=== PATIENT | male | born 1995 | race Caucasian/White ===

== ENCOUNTER 2019-08-11 05:33 | Day surgery (SDC) | payer SELFPAY ==
[2019-07-21 15:15] VITALS: BMI 23.7
--- NOTE | 2019-07-22 12:45 | HP_ITS ---
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 Patient has noted that he has had bulging for the last 6 months. Is especially painful with heavy lifting. He does not have any nausea or vomiting or fevers or chills. ROS General General: No weight change or fatigue Cardio Cardiovascular: No murmur, pacemaker, heart disease, atrial fibrillation, high blood pressure, heart attack, heart stent, palpitations, shortness of breat with exertion or chest pain Psych Psychiatric: No depression or anxiety Resp Respiratory: No shortness of breath, No sleep apnea, No cough, No COPD, No asthma, No emphysema, No wheezing Gastro Gastrointestinal: No abdominal pain, No nausea or vomiting, No diarrhea, No constipation, No blood in stool, No acid reflux, No hemorrhoids, No ulcers, No gallbladder problem, No black,tarry stools Lester Hematologic: No blood thinners Exam Const General: cooperative Orientation: alert, oriented x3 Resp Effort & Inspection: normal respiratory effort Auscultation: clear to auscultation bilaterally Cardio Rate: regular rate Rhythm: regular rhythm Heart Sounds: no murmurs GI Inspection: non-distended Palpation: soft, hernia indirect inguinal, nontender Assessment & Plan Problems 1. Right inguinal hernia K40.90 Plan The patient has a right inguinal hernia which is reducible. I discussed open and robotic assisted laparoscopic hernia repair with him. The patient was receptive to surgery. After discussing the options the patient prefers laparoscopic approach but he is checking with his insurance to see if they will pay for it or if he will have to have open repair. I discussed the risks of both procedures. I discussed the risks of bleeding, infection, chronic groin pain, spermatic cord injury, recurrence. Patient understands the risks and wants to proceed. Venkatesh Hernandes MD Pager: [facility] [address] [place] [address], [address] [place] [address] Office: Coding Level of Care Code Off vis,new,level 3 Diagnoses Right inguinal hernia K40.90 07/22/19 1245 <Electronically signed by Venkatesh redman MD> Date _ Venkatesh Hernandes MD I have re-examined the patient. There are no clinical changes since date of exam.
[2019-08-11] VITALS (8 sets, daily range): BP systolic 111–136; BP diastolic 61–81; PULSE 53–70; RESP 15–16; TEMP 36.2–36.9; O2SAT 98–100; BMI 23.4
[2019-08-11] MEDS: Lactated Ringers 1,000 ML 100 ML IV ×2 (06:22→06:39)
[2019-08-11] MEDS: Cefazolin 2 GM in 0.9% Normal Saline 100 ML IV (07:22)
[2019-08-11] MEDS: Bupivacaine Mpf 0.5% 30 ML VIAL (08:29)
--- NOTE | 2019-08-11 09:14 | PCM.OPRPT ---
Problem List (1) Right inguinal hernia Status: Acute Report of Operation Date of Procedure: 08/11/19 Pre-Operative Diagnosis: Right inguinal hernia Post-Operative Diagnosis: Right inguinal hernia Surgery/Procedure Performed:: Robotic assisted laparoscopic right inguinal hernia repair with mesh Description of Procedure: The patient was brought back to the operating room and general anesthesia was induced. The abdomen was prepped and draped in the usual sterile fashion. A midline incision was made superior to the umbilicus and the Veress needle was placed through this and a drop test was performed. The abdomen was then insufflated to 15 mmHg. The Veress needle was removed and the camera port was placed into this incision. The abdomen was inspected and was normal. Patient appeared to have a direct and indirect hernia in the right inguinal region. Next under direct visualization an 8 mm port was placed in the right lateral sidewall and left lateral sidewall. The robot was undocked and the patient was placed in steep Trendelenburg position. Using scissors and electrocautery the peritoneum was incised on the right side and the dissection was bluntly carried inferiorly until the hernia sac was encountered and reduced. The patient did have a direct and indirect component. Next a piece of pro-laborer chemical processing mesh was placed into the right inguinal region and unfolded. This adequately covered both hernia defects. The peritoneum was reapproximated with a running 3-0 V lock suture. This completely covered the mesh. There was one small defect in the peritoneum which was closed with a [id number] 4-0 Vicryl suture. Next the robot was undocked and the abdomen was allowed to desufflate. The incisions were anesthetized and closed with interrupted 4-0 Monocryl sutures as well as Steri-Strips and bandages. Patient tolerated procedure well. Testicles were checked at the end the case and were present in the scrotum. Grafts/Implants Used: Pro-laborer chemical processing mesh - Admit VTE Documentation VTE Mechan Device Prophylaxis: SCD's
--- NOTE | 2019-08-11 09:18 | PCM.DC.HER ---
Discharge Diet: Light diet - advance as tolerated Discharge Activity: Return to Normal Activity, May Not Drive - for 2-3 days or while taking narcotic pain meds., May Shower - with the bandage in place 1-2 days after surgery. Lifting Restrictions: 20 pounds for 2-4 weeks. Additional Activity Instructions:: Climbing stairs is fine, walking is encouraged. Sitting in bed may be uncomfortable. Sitting up using your lateral muscles (sitting up sideways) is usually more comfortable. Do not drive, work heavy equipment of sign legal documents for 24 hours. If your hernia repair was an ingunial repair, you may have scrotal swelling, an ice pack and/or athletic support can provide more comfort. Pain medications may cause nausea, you should typically eat light foods as you take your pain medications. Pain medications may also cause constipation. If you have difficulty with this, discuss with your doctor. Call your doctor if your incision/area has: Continuous Slow Oozing, Sudden Increased Bleeding, Increased Pain/ Swelling, Increased Redness, Foul Smelling Discharge Call your doctor if you observe: Fever of 101 or Higher Suture Line Care: Avoid Pulling/Pushing, Avoid Pinching/Bending Change Dressing in (Days):: 3 - Leave steri-strips for 1 week. May protect with a guaze bandaid. Cleanse incision/area with: Keep Dressing Clean & Dry Allergies/Adverse Reactions: Allergies No Known Allergies Allergy (Unverified 08/11/19 06:08) Medications to take at Discharge Oxycodone HCl/Acetaminophen [Percocet 5/325] 1 - 2 tablet PO Q4H PRN PRN 3 Days #15 tablet 08/11/19 The following prescriptions were given: Oxycodone HCl/Acetaminophen [Percocet 5/325] 1 - 2 tablet PO Q4H PRN PRN 3 Days #15 tablet PRN Reason: Pain Transmission Status: Sent to [facility] Primary Care Physician: Gonzalez Canales DO [Primary Care Provider] - Test Results: Test results from this visit will be discussed in further detail at your follow-up appointment, if applicable. Please Follow Up With: Venkatesh Hernandes MD When: Please call to schedule 2 week follow up appointment. [phone]
[2019-08-11] MEDS: oxyCODONE 5 MG Tablet PO (10:02)
[2019-08-11] MEDS: Acetaminophen 325 MG Tablet PO (10:02)
== END 2019-08-11 12:07 | disposition home or self-care (01) ==
LOC: SDC 05:36 → AC 05:37
PROVIDERS: Family Provider Family Medicine; PCP Family Medicine; Referring Provider Surgery; Visit Provider Surgery
PROC: (CPT 49650; principal; 2019-08-11 06:55)
DX: K40.90 Unilateral inguinal hernia, without obstruction or gangrene, not specified as recurrent (principal)
CPT/HCPCS: 00840; 49650; S2900; J7120; J2405